=== PATIENT | male | born 1970 | race Caucasian/White ===

== ENCOUNTER 2020-04-30 06:16 | Observation (INO) ==
[2020-04-30] MEDS ORDERED: CeFAZolin Syr 2,000MG/20 ML 2,000 MG/20 ML SYRINGE IVPB ONE (06:44)
[2020-04-30] MEDS ORDERED: Ondansetron 4 MG/2 ML VIAL IVP PRN ×2 (07:07→11:45)
[2020-04-30] MEDS ORDERED: Promethazine 6.25 MG in Water for inj. (sterile) 20 ML IVPB PRN (07:07)
[2020-04-30] MEDS ORDERED: *HR* OxyCODONE Immed Rel 5 MG TABLET PO PRN (07:07)
[2020-04-30] MEDS ORDERED: Lidocaine -MPF 2% 2 ML VIAL ONE (07:10)
[2020-04-30] MEDS ORDERED: *HR* Rocuronium Bromide 50 MG/5 ML VIAL ONE (07:10)
[2020-04-30] MEDS ORDERED: Dexamethasone 4 MG/ML VIAL ONE (07:10)
[2020-04-30] MEDS ORDERED: *HR* Midazolam HCl 2 MG/2 ML VIAL ONE (07:10)
[2020-04-30] MEDS ORDERED: *HR* Succinylcholine 200 MG/10 ML VIAL IVP ONE (07:10)
[2020-04-30] MEDS ORDERED: *HR* FentaNYL (PF) 100 MCG/2 ML VIAL ONE (07:10)
[2020-04-30] MEDS ORDERED: *HR* Propofol 200 MG/20 ML VIAL IVP ONE (07:10)
[2020-04-30] MEDS ORDERED: Lidocaine -MPF 4% 5 ML AMPUL ONE (07:10)
[2020-04-30] MEDS ORDERED: *HR* Remifentanil 1 MG VIAL IVP ONE (07:17)
[2020-04-30] MEDS: Ringers Solution, Lactated 1,000 ML IVC SCH ×3 (07:17→12:59)
[2020-04-30] MEDS ORDERED: Acetaminophen IV 1,000 MG/100 ML INFUS..BTL ONE (07:42)
[2020-04-30] MEDS ORDERED: Bacitracin 50,000 UNIT, Polymyxin B Sulfate 500,000 UNIT, Sodium Chloride IRRigation 1,... IR ONE (07:45)
[2020-04-30] MEDS ORDERED: EPHEDrine 50 MG/ML VIAL ONE (08:35)
[2020-04-30] MEDS: *HR* HYDROmorphone PF 0.5 MG/0.5 ML SYRINGE IVP PRN ×2 (10:50→11:00)
[2020-04-30] MEDS ORDERED: Naloxone 0.4 MG/ML INJ IVP PRN (11:45)
[2020-04-30] MEDS ORDERED: Acetaminophen 325 MG TABLET PO PRN (11:45)
[2020-04-30] MEDS: *HR* OxyCODONE Immed Rel 5 MG TABLET PO PRN ×3 (13:01→22:29)
[2020-04-30] MEDS: CeFAZolin 2 GM/120 ML BAG IVPB SCH ×2 (17:24→23:57)
[2020-04-30] MEDS: diazePAM 5 MG TABLET PO PRN (20:20)
[2020-05-01] MEDS: Ringers Solution, Lactated 1,000 ML IVC SCH ×2 (00:01→11:45)
[2020-05-01] MEDS: *HR* OxyCODONE Immed Rel 5 MG TABLET PO PRN ×4 (05:42→21:59)
[2020-05-01] MEDS: diazePAM 5 MG TABLET PO PRN (08:05)
[2020-05-01] MEDS: diazePAM 10 MG TABLET PO PRN (16:12)
[2020-05-01] MEDS: *HR* HYDROcodone/Acet 5/325 mg TABLET PO PRN (19:12)
[2020-05-02] MEDS: *HR* HYDROcodone/Acet 5/325 mg TABLET PO PRN ×2 (01:17→21:27)
[2020-05-02] MEDS: diazePAM 10 MG TABLET PO PRN ×3 (01:17→21:29)
[2020-05-02] MEDS: *HR* OxyCODONE Immed Rel 5 MG TABLET PO PRN ×4 (06:12→18:29)
[2020-05-02] MEDS ORDERED: Acetaminophen IV 1,000 MG/100 ML INFUS..BTL IVPB ONE (11:15)
[2020-05-02 11:42] LABS: BUN/Creatinine Ratio 16 (6-26); Blood Urea Nitrogen 12 mg/dL (6-20); Calcium 9.1 mg/dL (8.6-10.3); Carbon Dioxide 28 mEq/L (23-29); Chloride 98 mEq/L (98-107); Glucose 99 mg/dL (70-105); Osmolality,Calculated 276 (280-300); Potassium 3.9 mEq/L (3.5-5.1); Sodium 133 mEq/L (136-145); eGFR For African Americans > 60 (> 60); eGFR For Non-African Americans > 60 (> 60)
[2020-05-03] MEDS: *HR* OxyCODONE Immed Rel 5 MG TABLET PO PRN ×4 (01:41→18:08)
[2020-05-03] MEDS: diazePAM 10 MG TABLET PO PRN (04:45)
[2020-05-03] MEDS: *HR* HYDROcodone/Acet 5/325 mg TABLET PO PRN ×2 (04:46→21:36)
[2020-05-04] MEDS: Ringers Solution, Lactated 1,000 ML IVC SCH ×3 (01:23→01:25)
[2020-05-04] MEDS: *HR* OxyCODONE Immed Rel 5 MG TABLET PO PRN ×3 (03:11→16:53)
[2020-05-04] MEDS: *HR* HYDROcodone/Acet 5/325 mg TABLET PO PRN (20:37)
[2020-05-05] MEDS: *HR* OxyCODONE Immed Rel 5 MG TABLET PO PRN ×3 (07:34→22:19)
[2020-05-05] MEDS: Sennosides/Docusate Sodium TABLET PO SCH (18:36)
[2020-05-05] MEDS: Albuterol 2.5 MG/3 ML NEBULIZER IH PRN (20:08)
[2020-05-06] MEDS: Sennosides/Docusate Sodium TABLET PO SCH (08:22)
[2020-05-06] MEDS: *HR* OxyCODONE Immed Rel 5 MG TABLET PO PRN ×3 (08:22→18:34)
[2020-05-06] MEDS: Albuterol 2.5 MG/3 ML NEBULIZER IH PRN (19:45)
[2020-05-06] MEDS: GuaiFENesin Liq 200 MG/10 ML UDC PO PRN (20:21)
[2020-05-07] MEDS: GuaiFENesin Liq 200 MG/10 ML UDC PO PRN (03:27)
[2020-05-07] MEDS: *HR* OxyCODONE Immed Rel 5 MG TABLET PO PRN ×2 (03:37→09:56)
[2020-05-07] MEDS: Sennosides/Docusate Sodium TABLET PO SCH (09:05)
[2020-05-07 10:41] VITALS: BP 117/75
== END 2020-05-07 12:45 | disposition home or self-care (01) ==
LOC: SAMDAY 06:16 → 3NENU 06:16
PROVIDERS: ADMIT Orthopaedic Surgery Orthopaedic Surgery of the Spine; ATTEND Orthopaedic Surgery Orthopaedic Surgery of the Spine